=== PATIENT | male | born 2005 | race Caucasian/White ===

== ENCOUNTER 2024-01-27 11:51 | Emergency (ER) | payer OTHER ==
[~2024-01-27] VITALS: Ht 193 cm; Wt 125.0 kg
[2024-01-27 12:10] LABS: BASO # 0.03 K/mm3 (0.02-0.10); EOS # 0.22 K/mm3 (0.04-0.40); HEMATOCRIT 45.9 % (36.0-47.0); HEMOGLOBIN 15.2 g/dL (12.5-16.1); LYMPH# 2.32 K/mm3 (1.50-4.00); MEAN CELL VOLUME 90 fl (78-95); MEAN CORPUSCULAR HEMOGLOBIN 30 pg (26-32); MEAN CORPUSCULAR HGB CONC 33 g/dL (33-37); MEAN PLATELET VOLUME 9.9 fl (7.4-10.4); MONO # 0.56 K/mm3 (0.20-0.80); NEU # 2.38 K/mm3 (1.40-6.50); PLATELET COUNT 231 K/mm3 (130-400); RED BLOOD COUNT 5.09 M/mm3 (4.20-5.60); RED CELL DISTRIBUTION WIDTH 11.9 % (11.5-14.5); WHITE BLOOD COUNT 5.5 K/mm3 (4.8-10.8)
[2024-01-27 12:19] LABS: ALBUMIN 4.3 g/dL (3.5-5.0)
[2024-01-27 12:20] LABS: CALCIUM 9.3 mg/dL (8.3-10.5)
[2024-01-27 12:21] LABS: TOTAL PROTEIN 6.8 g/dL (6.4-8.3)
[2024-01-27 12:23] LABS: TOTAL BILIRUBIN 1.8 mg/dL (0.2-1.2)
[2024-01-27 16:42] VITALS: BP 127/65
== END 2024-01-27 16:47 | disposition home or self-care (01) ==
LOC: ED 11:51
PROVIDERS: Family Medicine
DX: R07.89 Other chest pain (principal)